=== PATIENT | female | born 1995 | race African-American/Black ===

== ENCOUNTER 2017-11-02 08:16 | Emergency (ER) | payer SELFPAY ==
[~2017-11-02] VITALS: Ht 157.5 cm; Wt 52.0 kg
[2017-11-02 13:06] VITALS: BP 106/62
== END 2017-11-02 13:10 | disposition home or self-care (01) ==
LOC: ER 08:56
DX: N63.0 Unspecified lump in unspecified breast (principal)
CPT/HCPCS: 76641; 99284

== ENCOUNTER 2017-12-19 13:58 | Emergency (ER) | payer MEDICAID ==
[~2017-12-19] VITALS: Ht 152.4 cm; Wt 41.0 kg
[2017-12-19] MEDS ORDERED: IBUPROFEN 400MG TABLET PO ONE (16:30)
[2017-12-19 17:50] VITALS: BP 91/49
[2017-12-19] MEDS: CYCLOBENZAPRINE 10MG TABLET PO SCH (18:05)
== END 2017-12-19 18:33 | disposition home or self-care (01) ==
LOC: ER 14:05
DX: S00.83XA Contusion of other part of head, initial encounter (principal); S00.81XA Abrasion of other part of head, initial encounter; V43.62XA Car passenger injured in collision with other type car in traffic accident, initial encounter; Y93.89 Activity, other specified; Y92.488 Other paved roadways as the place of occurrence of the external cause
CPT/HCPCS: 70486; 81025; 99284